=== PATIENT | male | born 1960 | race Caucasian/White ===

== ENCOUNTER → 2018-10-02 09:33 | Outpatient (CLI) | payer OTHER, SELFPAY ==
[2018-10-02 10:40] LABS: Alanine Aminotransferase 39 IU/L (21-72); Albumin 4.5 g/dL (3.5-5.0); Albumin Globulin Ratio 1.6 (1.0-2.8); Alkaline Phosphatase 50 U/L (38-126); Aspartate Aminotransferase 29 IU/L (17-59); BUN Creatinine Ratio 21.1 (6-22); Blood Urea Nitrogen 19 mg/dL (9-20); Calcium 9.5 mg/dL (8.4-10.2); Carbon Dioxide 27 mmol/L (22-32); Chloride 102 mmol/L (98-107); Cholesterol 218 mg/dL (140-199); Estimated Glomerular Filt Rate > 60.0 mL/min (>60); Globulin 2.8 g/dL (1.7-4.1); Glucose 95 mg/dL (80-110); HDL Cholesterol 69 mg/dL (40-60); HEMOLYSIS < 15 (0-50); LDL Cholesterol Calculated 119 mg/dL (<100); Potassium 4.2 mmol/L (3.4-5.1); Sodium 139 mmol/L (137-145); Total Protein 7.3 g/dL (6.3-8.2); Triglycerides 149 mg/dL (35-150)
== END ==
PROVIDERS: PCP Family Medicine; Visit Provider Family Medicine
DX: E66.9 Obesity, unspecified (principal); E78.5 Hyperlipidemia, unspecified; I10 Essential (primary) hypertension
CPT/HCPCS: 36415; 80053; 80061

== ENCOUNTER → 2019-06-26 11:23 | Outpatient (CLI) | payer OTHER, SELFPAY ==
[2019-06-26 12:54] LABS: Hematocrit 47.7 % (41-53); Hemoglobin 16.3 g/dL (13.5-17.5); Mean Corpuscular HGB Conc 34.3 % (30-36); Mean Corpuscular Hemoglobin 31.5 PG (26-34); Mean Corpuscular Volume 91.8 fL (80-100); Platelet Count 206 X10^3/uL (150-400); Red Blood Cell Count 5.19 X10^6/uL (4.5-5.9); Red Cell Distribution Width 12.9 % (11.6-14.8); White Blood Cell Count 5.7 X10^3/uL (4.5-11.0)
[2019-06-26 13:34] LABS: Alanine Aminotransferase 51 IU/L (21-72); Albumin 4.6 g/dL (3.5-5.0); Albumin Globulin Ratio 1.8 (1.0-2.8); Alkaline Phosphatase 57 U/L (38-126); Aspartate Aminotransferase 41 IU/L (17-59); BUN Creatinine Ratio 18.8 (6-22); Bilirubin Total 0.7 mg/dL (0.2-1.3); Blood Urea Nitrogen 15 mg/dL (9-20); Carbon Dioxide 28 mmol/L (22-32); Chloride 101 mmol/L (98-107); Estimated Glomerular Filt Rate > 60.0 mL/min (>60); Globulin 2.6 g/dL (1.7-4.1); Glucose 100 mg/dL (80-110); HEMOLYSIS < 15 (0-50); Potassium 4.8 mmol/L (3.4-5.1); Sodium 140 mmol/L (137-145); Total Protein 7.2 g/dL (6.3-8.2)
[2019-06-26 14:53] LABS: Creatinine Urine Random 67.9 mg/dL
[2019-06-26 15:09] LABS: Microalbumi Creatinin Ratio Ur 8.8 ug/mg CR (<30); Microalbumin Urine Random < 0.6 mg/dL (0-1.6)
== END ==
PROVIDERS: Family Provider Family Medicine; PCP Family Medicine; Visit Provider Nurse Practitioner Family
DX: I10 Essential (primary) hypertension (principal)
CPT/HCPCS: 36415; 80053; 82043; 82570; 85027

== ENCOUNTER → 2020-06-30 10:22 | Outpatient (CLI) | payer OTHER, SELFPAY ==
[2020-06-30 12:01] LABS: Alanine Aminotransferase 41 IU/L (<50); Albumin 4.5 g/dL (3.5-5.0); Albumin Globulin Ratio 1.5 (1.0-2.8); Alkaline Phosphatase 71 U/L (38-126); Aspartate Aminotransferase 32 IU/L (17-59); BUN Creatinine Ratio 12.9 (6-22); Bilirubin Total 0.8 mg/dL (0.2-1.3); Blood Urea Nitrogen 11 mg/dL (9-20); Calcium 9.4 mg/dL (8.4-10.2); Carbon Dioxide 31 mmol/L (22-32); Chloride 102 mmol/L (98-107); Cholesterol 199 mg/dL (140-199); Estimated Glomerular Filt Rate > 60.0 mL/min (>60); Glucose 109 mg/dL (80-110); HDL Cholesterol 59 mg/dL (40-60); HEMOLYSIS < 15 (0-50); LDL Cholesterol Calculated 110 mg/dL (<100); Potassium 4.5 mmol/L (3.4-5.1); Sodium 140 mmol/L (137-145); Total Protein 7.5 g/dL (6.3-8.2); Triglycerides 150 mg/dL (35-150)
== END ==
PROVIDERS: Family Provider Family Medicine; PCP Family Medicine; Referring Provider Family Medicine; Visit Provider Family Medicine
DX: E66.9 Obesity, unspecified (principal); E78.5 Hyperlipidemia, unspecified; I10 Essential (primary) hypertension
CPT/HCPCS: 36415; 80053; 80061

== ENCOUNTER → 2020-12-19 08:50 | Outpatient (CLI) | payer OTHER, SELFPAY ==
[2020-12-19] MEDS: COVID-19 VACC #1, MRNA(MOD) 100 MCG/0.5 ML VIAL IM (09:00)
== END ==
PROVIDERS: Family Provider Family Medicine; PCP Family Medicine; Visit Provider Internal Medicine
DX: Z23 Encounter for immunization (principal)
CPT/HCPCS: 0011A; 91301

== ENCOUNTER → 2021-01-07 11:03 | Outpatient (CLI) | payer OTHER, SELFPAY ==
--- NOTE | 2021-01-07 11:05 | DI.RAD.S_ITS ---
PROCEDURE: XR CERVICAL SPINE 2V OR 3V INDICATIONS: right arm paresthesia TECHNIQUE: Four views of the cervical spine were acquired. COMPARISON: None. FINDINGS: Bones: No acute fractures or dislocations to the C6 level. The lateral masses of C1 appear intact on the odontoid view. No suspicious bony lesions. Degenerative endplate changes are seen at the C4-5 and C5-6 level. There is facet hypertrophy and uncovertebral joint hypertrophy at C3-4 through C6-7. There are no cervical ribs. Soft tissues: No prevertebral soft tissue swelling. IMPRESSION: No acute fracture or subluxation. Moderate multilevel spondylosis. Dictated by: Solomon Galvin M.D. on 01/07/2021 at 17:05 Approved by: Solomon Galvin M.D. on 01/07/2021 at 17:07
--- NOTE | 2021-01-07 11:05 | DI.RAD.S_ITS ---
PROCEDURE: XR SHOULDER RT MIN 2V INDICATIONS: right arm paresthesia TECHNIQUE: 3 views of the shoulder were acquired. COMPARISON: None. FINDINGS: Bones: No fractures or dislocations. No suspicious bony lesions. Visualized ribs appear intact. Soft tissues: No suspicious soft tissue calcifications. IMPRESSION: [id number] osteoarthritis at the right shoulder, no acute trauma found. Dictated by: Edgar Cannon M.D. on 01/07/2021 at 12:41 Approved by: Edgar Cannon M.D. on 01/07/2021 at 12:41
== END ==
PROVIDERS: Family Provider Family Medicine; PCP Family Medicine; Referring Provider Family Medicine; Visit Provider Family Medicine
DX: M25.511 Pain in right shoulder (principal); R20.2 Paresthesia of skin; M19.011 Primary osteoarthritis, right shoulder; M47.812 Spondylosis without myelopathy or radiculopathy, cervical region
CPT/HCPCS: 72040; 73030

== ENCOUNTER → 2021-01-21 07:59 | Outpatient (CLI) | payer OTHER, SELFPAY ==
[2021-01-21] MEDS: COVID-19 VACC #2, MRNA(MOD) 100 MCG/0.5 ML VIAL IM (08:10)
== END ==
PROVIDERS: Family Provider Family Medicine; PCP Family Medicine; Visit Provider Internal Medicine
DX: Z23 Encounter for immunization (principal)
CPT/HCPCS: 0012A; 91301

== ENCOUNTER → 2022-02-25 10:07 | Outpatient (CLI) | payer OTHER, SELFPAY ==
[2022-02-25 11:06] LABS: Add Manual Diff / Slide Review NO; Basophils Absolute Auto 100 /uL (0-100); Basophils Percent Auto 1.4 % (0-2); Eosinophils Absolute Auto 400 /uL (0-450); Eosinophils Percent Auto 6.8 % (2-4); Hematocrit 44.4 % (41-53); Hemoglobin 15.6 g/dL (13.5-17.5); Lymphocytes Absolute Auto 1800 /uL (1100-4500); Lymphocytes Percent Auto 32.4 % (25-40); Mean Corpuscular Hemoglobin 31.5 PG (26-34); Monocytes Absolute Auto 500 /uL (0-900); Neutrophils Absolute Auto 2800 /uL (1500-7000); Neutrophils Percent Auto 50.4 % (50-75); Platelet Count 210 X10^3/uL (150-400); Red Blood Cell Count 4.94 X10^6/uL (4.5-5.9); Red Cell Distribution Width 12.7 % (11.6-14.8); White Blood Cell Count 5.5 X10^3/uL (4.5-11.0)
[2022-02-25 11:22] LABS: Alanine Aminotransferase 41 IU/L (<50); Albumin 4.5 g/dL (3.5-5.0); Albumin Globulin Ratio 1.6 (1.0-2.8); Alkaline Phosphatase 65 U/L (38-126); Aspartate Aminotransferase 40 IU/L (17-59); BUN Creatinine Ratio 22.6 (6-22); Blood Urea Nitrogen 19 mg/dL (9-20); Calcium 9.3 mg/dL (8.4-10.2); Carbon Dioxide 30 mmol/L (22-32); Chloride 100 mmol/L (98-107); Cholesterol 195 mg/dL (140-199); Estimated Glomerular Filt Rate > 60 mL/min (>60); Globulin 2.9 g/dL (1.7-4.1); Glucose 113 mg/dL (80-110); HDL Cholesterol 60 mg/dL (40-60); HEMOLYSIS < 15 (0-50); LDL Cholesterol Calculated 114 mg/dL (<100); Potassium 3.8 mmol/L (3.4-5.1); Sodium 137 mmol/L (137-145); Total Protein 7.4 g/dL (6.3-8.2); Triglycerides 104 mg/dL (35-150)
[2022-02-25 11:51] LABS: Prostate Specific Antigen Scrn 1.27 ng/mL (0.1-4.0)
[2022-02-25 11:53] LABS: TSH w/ Reflex to FT4 1.79 uIU/mL (0.47-4.68)
== END ==
PROVIDERS: Family Provider Family Medicine; PCP Family Medicine; Referring Provider Family Medicine; Visit Provider Family Medicine
DX: E78.5 Hyperlipidemia, unspecified (principal); I10 Essential (primary) hypertension; N52.1 Erectile dysfunction due to diseases classified elsewhere; Z12.5 Encounter for screening for malignant neoplasm of prostate
CPT/HCPCS: 36415; 80053; 80061; 84443; 85025; G0103

== ENCOUNTER → 2022-11-06 08:37 | Outpatient (CLI) | payer OTHER, SELFPAY ==
[2022-11-06 09:31] LABS: Hemoglobin A1C% w Est Avg Glu 5.9 % (4.0-6.0)
[2022-11-06 10:03] LABS: Alanine Aminotransferase 62 IU/L (<50); Albumin 4.3 g/dL (3.5-5.0); Albumin Globulin Ratio 1.6 (1.0-2.8); Alkaline Phosphatase 80 U/L (38-126); Aspartate Aminotransferase 41 IU/L (17-59); BUN Creatinine Ratio 20.3 (6-22); Bilirubin Total 0.8 mg/dL (0.2-1.3); Blood Urea Nitrogen 16 mg/dL (9-20); Calcium 9.3 mg/dL (8.4-10.2); Carbon Dioxide 31 mmol/L (22-32); Chloride 98 mmol/L (98-107); Cholesterol 168 mg/dL (140-199); Estimated Glomerular Filt Rate > 60 mL/min (>60); Globulin 2.7 g/dL (1.7-4.1); Glucose 102 mg/dL (80-110); HDL Cholesterol 57 mg/dL (40-60); HEMOLYSIS < 15 (0-50); LDL Cholesterol Calculated 88 mg/dL (<100); Potassium 3.9 mmol/L (3.4-5.1); Sodium 137 mmol/L (137-145); Triglycerides 114 mg/dL (35-150)
== END ==
PROVIDERS: Family Provider Family Medicine; PCP Family Medicine; Referring Provider Family Medicine; Visit Provider Family Medicine
DX: E78.00 Pure hypercholesterolemia, unspecified (principal); I10 Essential (primary) hypertension; R73.03 Prediabetes
CPT/HCPCS: 36415; 80053; 80061; 83036

== ENCOUNTER → 2022-11-22 07:40 | Outpatient (CLI) | payer OTHER, SELFPAY ==
--- NOTE | 2022-11-22 07:42 | DI.US.S_ITS ---
PROCEDURE: US CAROTID DOPPLER BI INDICATIONS: EVALUATE AND TREAT TECHNIQUE: Color and pulse Doppler interrogation was performed of both carotid systems, with image documentation and velocity measurements. COMPARISON: None. FINDINGS: Stenosis calculations are based on SRU (Society of Radiologists in Ultrasound) criteria. Right side: Brachial blood pressure: 118/66 mm Hg. Common carotid artery peak systolic velocity: 123 cm/sec. Internal carotid artery peak systolic velocity: 90 cm/sec. Internal carotid artery end diastolic velocity: 73 cm/sec. External carotid artery peak systolic velocity: 124 cm/sec. ICA/CCA peak systolic ratio: 0.7 . Guillaume scale imaging description: No plaque Percent internal carotid artery stenosis: No hemodynamically significant stenosis . Vertebral artery: Flow direction is antegrade. Left side: Brachial blood pressure: 132/84 mm Hg. Common carotid artery peak systolic velocity: 87 cm/sec. Internal carotid artery peak systolic velocity: 74 cm/sec. Internal carotid artery end diastolic velocity: 101 cm/sec. External carotid artery peak systolic velocity: 133 cm/sec. ICA/CCA peak systolic ratio: 1.16 . Guillaume scale imaging description: No plaque Percent internal carotid artery stenosis: No hemodynamically significant stenosis . Vertebral artery: Flow direction is antegrade. IMPRESSION: No internal carotid artery plaque or hemodynamically significant stenosis. Dictated by: Reynold Benavidez M.D. on 11/22/2022 at 9:28 Approved by: Reynold Benavidez M.D. on 11/22/2022 at 9:33
== END ==
PROVIDERS: Family Provider Family Medicine; PCP Family Medicine; Referring Provider Family Medicine; Visit Provider Family Medicine
DX: R09.89 Other specified symptoms and signs involving the circulatory and respiratory systems (principal)
CPT/HCPCS: 93880

== ENCOUNTER 2023-01-25 07:09 | Day surgery (SDC) | payer OTHER, SELFPAY ==
[2023-01-25 07:22] VITALS: BP 142/76; PULSE 77; RESP 18; TEMP 36.2; O2SAT 97; BMI 31.8
[2023-01-25] MEDS: LACTATED RINGERS 1,000 ML 200 ML IV (07:35)
--- NOTE | 2023-01-25 08:10 | P.HP_ITS ---
History of Present Illness History of Present Illness Date Patient Seen: 01/25/23 Time Patient Seen: 08:10 Chief complaint: SDC Narrative: The patient presents for colorectal screening. Previously normal colonoscopy 10 years ago. No personal or family history of colon cancer. On further history denies any recent gastrointestinal symptoms. No nausea, vomiting, abdominal pain, loss of appetite, unexplained weight loss, change in bowel habits, or blood per rectum. [facility] Medical History Carotid bruit Chicken pox Erectile disorder due to medical condition in male Hyperlipidemia (09/06/16) Hyperlipidemia Hypertension (09/06/16) Hypertension Obesity (09/06/16) Osteoarthritis Prediabetes Shingles Surgical History No history of previous surgery (09/05/16) Family History Father Age: 92 CVA (cerebral infarction) Congestive heart failure CAD (coronary artery disease) Brother No problems noted. Mother No problems noted. Grandmother No problems noted. Sister No problems noted. Sister No problems noted. Grandfather Heart disease Grandfather No problems noted. Grandmother Blood disorder Social History household members: spouse Smoking Status: Never smoker alcohol intake: current Meds Home Medications and Allergies Home Medications Medication Instructions Recorded Confirmed Type aspirin 81 mg tablet,delayed 81 mg PO QDAY ##0 08/10/17 01/25/23 History release amlodipine 10 mg tablet 10 mg PO DAILY #90 tabs 11/11/22 01/25/23 Rx chlorthalidone 25 mg tablet 25 mg PO DAILY #90 tabs 11/11/22 01/25/23 Rx irbesartan 150 mg tablet See Rx Instructions .Route 11/11/22 01/25/23 Rx .COMPLEX #180 tabs sildenafil (pulm.hypertension) 20 60 mg PO ONCE sexual activity #100 11/11/22 01/25/23 Rx mg tablet tabs simvastatin 40 mg tablet 40 mg PO DAILY #90 tabs 11/11/22 01/25/23 Rx Allergies Allergy/AdvReac Type Severity Reaction Status Date / Time No Known Drug Allergies Allergy Verified 11/11/22 15:35 Exam Vital Signs (past 8 hours): - 01/25/23 07:22 Temperature 97.2 F L Pulse Rate 77 Respiratory Rate 18 Blood Pressure 142/76 H Pulse Oximetry 97 Oxygen Delivery Method Room Air Oxygen Delivery Method Room Air Narrative Exam Narrative: General adult man alert oriented no acute distress Assessment & Plan Assessment & Plan narrative: The patient requires colorectal screening and colonoscopy is recommended. Technical details were discussed. Risks, benefits, alternatives explained. Risks including but not limited to myocardial infarction, aspiration, bleeding, pain, missed lesion, incomplete examination, need for further radiographic studies, colonic perforation, and need for major abdominal surgery were discussed. All questions were answered to their satisfaction, and they are in agreement with this plan.
--- NOTE | 2023-01-25 08:26 | PM.OP.COLON ---
Operative Date/Time/Diagnoses Date of procedure: 01/25/23 Time of procedure: 08:26 Pre-op diagnosis: Colorectal screening Post-op diagnosis: same Procedure & Clinicians Study performed: Colonoscopy-aborted Same procedure as scheduled: Yes Indications: Colorectal screening Surgeon: Harlan Paiz Procedure Notes Procedure in detail: The history and physical was performed/updated and the patient is ASA class is 2. The procedure was discussed in detail with the patient. Potential risks complications including infection, bleeding, missed diagnosis, perforation, need for surgery, and were explained. Their questions were answered and informed consent was obtained. Patient was brought to the procedure room and placed standard monitoring equipment. The patient's vital signs were monitored continuously throughout the entire procedure. Prior to starting time-out was performed. The patient was placed in the left lateral recumbent position. Procedural sedation was administered by anesthesia. Examination began with a thorough inspection of the perianal area there was no evidence of fissures, fistulae, external hemorrhoids or cutaneous malignancy. The colonoscopy scope was then placed into the anal canal and was advanced forward. Within the proximal rectum/sigmoid colon solid non mobile stool was encountered. Despite vigorous irrigation we could not proceed safely. The preparation was inadequate and we will need to be rescheduled with an alternative prep Specimen(s): none sent Impression: Aborted colonoscopy secondary to inadequate prep Post-procedure Plan for aftercare: Contact surgical clinic to reschedule with an alternative prep Disposition: same day surgery
[2023-01-25 08:27] VITALS: BP 112/66; PULSE 63; RESP 14; TEMP 36.2; O2SAT 96
[2023-01-25 08:32] VITALS: BP 112/67; PULSE 63; RESP 14; O2SAT 95
[2023-01-25 08:37] VITALS: BP 119/70; PULSE 64; RESP 17; O2SAT 95
[2023-01-25 08:42] VITALS: BP 134/86; PULSE 66; RESP 15; O2SAT 94
[2023-01-25 08:48] VITALS: BP 135/79; PULSE 61; RESP 16; TEMP 36.3; O2SAT 94
== END 2023-01-25 08:57 | disposition home or self-care (01) ==
PROVIDERS: Family Provider Family Medicine; PCP Family Medicine; Referring Provider Surgery; Visit Provider Surgery
PROC: 0DJD8ZZ Inspection of Lower Intestinal Tract, Via Natural or Artificial Opening Endoscopic (ICD-10-PCS; CPT 45378; principal; 2023-01-25 08:15)
DX: Z12.11 Encounter for screening for malignant neoplasm of colon (principal); Z53.09 Procedure and treatment not carried out because of other contraindication
CPT/HCPCS: 45378; J2250; J3010

== ENCOUNTER 2023-02-22 10:39 | Day surgery (SDC) | payer OTHER, SELFPAY ==
--- NOTE | 2023-02-22 | PATH_ITS ---
[facility] Accession Number: [id number] No. of containers..01 Tissue . 01 Material submitted: . colon - TRANSVERSE POLYP . 01 Diagnosis: Transverse Colon Polyp, Biopsy: Tubular adenoma. MRV 03/01/2023 1426 Local . 01 Electronically signed: . Izabel Manuel MD, Pathologist NPI- [id number] . 01 Gross description: . The specimen is received in formalin labeled with the patient's name, , and transverse polyp and consists of three giraldo soft tissue fragments, ranging from 0.2 to 0.5 cm in greatest dimension. Submitted entirely in cassette A1. ([id number]) /[facility] 02/24/2023 1806 Local . 01 Pathologist provided ICD-10: D12.3 . 01 CPT . 063765 Specimen Comment: A courtesy copy of this report has been sent to [phone] Performed at: 01 [facility] [address] [place] [address] [facility], [place], [place] [id number] MD Jamarcus Ibrahim MD Phone: [phone]
[2023-02-22] MEDS: LACTATED RINGERS 1,000 ML 200 ML IV (10:48)
[2023-02-22 10:58] VITALS: BP 129/69; PULSE 60; RESP 18; TEMP 36.2; O2SAT 98; BMI 32.2
--- NOTE | 2023-02-22 11:37 | P.HP_ITS ---
History of Present Illness History of Present Illness Date Patient Seen: 02/22/23 Time Patient Seen: 11:37 Chief complaint: [facility] Narrative: The patient presents for colorectal screening.? Previously normal colonoscopy 10 years ago.? He had an attempted colonoscopy last month which was aborted due to inadequate prep. [facility] Medical History Carotid bruit Chicken pox Erectile disorder due to medical condition in male Hyperlipidemia (09/06/16) Hyperlipidemia Hypertension (09/06/16) Hypertension Obesity (09/06/16) Osteoarthritis Prediabetes Shingles Surgical History No history of previous surgery (09/05/16) Family History Father Age: 92 CVA (cerebral infarction) Congestive heart failure CAD (coronary artery disease) Brother No problems noted. Mother No problems noted. Grandmother No problems noted. Sister No problems noted. Sister No problems noted. Grandfather Heart disease Grandfather No problems noted. Grandmother Blood disorder Social History household members: spouse Smoking Status: Never smoker alcohol intake: current Meds Home Medications and Allergies Home Medications Medication Instructions Recorded Confirmed Type aspirin 81 mg tablet,delayed 81 mg PO QDAY ##0 08/10/17 02/22/23 History release amlodipine 10 mg tablet 10 mg PO DAILY #90 tabs 11/11/22 02/22/23 Rx chlorthalidone 25 mg tablet 25 mg PO DAILY #90 tabs 11/11/22 02/22/23 Rx irbesartan 150 mg tablet See Rx Instructions .Route 11/11/22 02/22/23 Rx .COMPLEX #180 tabs sildenafil (pulm.hypertension) 20 60 mg PO ONCE sexual activity #100 11/11/22 02/22/23 Rx mg tablet tabs simvastatin 40 mg tablet 40 mg PO DAILY #90 tabs 11/11/22 02/22/23 Rx Allergies Allergy/AdvReac Type Severity Reaction Status Date / Time No Known Drug Allergies Allergy Verified 02/22/23 10:55 Exam Vital Signs (past 8 hours): - 02/22/23 10:58 Temperature 97.1 F L Pulse Rate 60 Respiratory Rate 18 Blood Pressure 129/69 Pulse Oximetry 98 Oxygen Delivery Method Room Air Oxygen Delivery Method Room Air Narrative Exam Narrative: General adult man alert oriented no acute distress Assessment & Plan Assessment & Plan narrative: The patient requires colorectal screening and colonoscopy is recommended. Technical details were discussed. Risks, benefits, alternatives explained. Risks including but not limited to myocardial infarction, aspiration, bleeding, pain, missed lesion, incomplete examination, need for further radiographic studies, colonic perforation, and need for major abdominal surgery were discussed. All questions were answered to their satisfaction, and they are in agreement with this plan.
--- NOTE | 2023-02-22 12:00 | PM.OP.COLON ---
Operative Date/Time/Diagnoses Date of procedure: 02/22/23 Time of procedure: 12:00 Pre-op diagnosis: Colorectal screening Post-op diagnosis: other (Colonic polyps x2) Procedure & Clinicians Study performed: Colonoscopy and polypectomy Same procedure as scheduled: Yes Indications: 62-year-old man here for colorectal screening by colonoscopy. Surgeon: Harlan Paiz Procedure Notes Procedure in detail: The history and physical was performed/updated and the patient is ASA class is 2. The procedure was discussed in detail with the patient. Potential risks complications including infection, bleeding, missed diagnosis, perforation, need for surgery, and were explained. Their questions were answered and informed consent was obtained. Patient was brought to the procedure room and placed standard monitoring equipment. The patient's vital signs were monitored continuously throughout the entire procedure. Prior to starting time-out was performed. The patient was placed in the left lateral recumbent position. Procedural sedation was administered by anesthesia. Examination began with a thorough inspection of the perianal area there was no evidence of fissures, fistulae, external hemorrhoids or cutaneous malignancy. The colonoscopy scope was then placed into the anal canal and was advanced to the cecum, which was identified by the ileocecal valve, the appendiceal orifice and the confluence of the taenia. The scope was then slowly withdrawn examining colon thoroughly in all directions, irrigating it of any residual stool. Sigmoid colon was notable for extensive diverticulosis. Within the transverse colon there was a 3 mm polyp removed with biopsy forceps as well as a flat 5-8 mm polyp which was removed in its entirety with cold snare. The patient tolerated the procedure well. They will be discharged once criteria are met. The prep was of good/excellent quality. The withdrawl time was 8 minutes. Specimen(s): other (Transverse colonic polyps x2) Impression: Colonic polyps Post-procedure Recommendations: High fiber diet Plan for aftercare: Follow-up is dependent on pathology findings Disposition: same day surgery
[2023-02-22 12:02] VITALS: BP 118/67; PULSE 58; RESP 18; TEMP 36.1; O2SAT 95
[2023-02-22 12:07] VITALS: BP 111/68; PULSE 57; RESP 14; O2SAT 96
[2023-02-22 12:13] VITALS: BP 124/74; PULSE 59; RESP 12; O2SAT 96
[2023-02-22 12:17] VITALS: BP 133/73; PULSE 53; RESP 18; O2SAT 99
[2023-02-22 12:33] VITALS: BP 131/81; PULSE 60; RESP 14; TEMP 36.4; O2SAT 100
== END 2023-02-22 12:37 | disposition home or self-care (01) ==
PROVIDERS: Family Provider Family Medicine; PCP Family Medicine; Referring Provider Surgery; Visit Provider Surgery
PROC: 0DJD8ZZ Inspection of Lower Intestinal Tract, Via Natural or Artificial Opening Endoscopic (ICD-10-PCS; CPT 45378; principal; 2023-02-22 11:45)
DX: Z12.11 Encounter for screening for malignant neoplasm of colon (principal); K57.30 Diverticulosis of large intestine without perforation or abscess without bleeding; D12.3 Benign neoplasm of transverse colon
CPT/HCPCS: 45385; 45380; J2704

== ENCOUNTER → 2024-01-26 07:17 | Outpatient (CLI) | payer OTHER, SELFPAY ==
[2024-01-26 08:40] LABS: Hemoglobin A1C% w Est Avg Glu 6.1 % (4.0-6.0)
[2024-01-26 08:43] LABS: Alanine Aminotransferase 35 IU/L (<50); Albumin 4.3 g/dL (3.5-5.0); Albumin Globulin Ratio 1.7 (1.0-2.8); Alkaline Phosphatase 72 U/L (38-126); Aspartate Aminotransferase 32 IU/L (17-59); BUN Creatinine Ratio 26.6 (6-22); Bilirubin Total 0.8 mg/dL (0.2-1.3); Blood Urea Nitrogen 21 mg/dL (9-20); Calcium 9.4 mg/dL (8.4-10.2); Carbon Dioxide 29 mmol/L (22-32); Chloride 106 mmol/L (98-107); Cholesterol 158 mg/dL (140-199); Estimated Glomerular Filt Rate > 60 mL/min (>60); Globulin 2.6 g/dL (1.7-4.1); Glucose 101 mg/dL (80-110); HDL Cholesterol 48 mg/dL (40-60); HEMOLYSIS < 15 (0-50); LDL Cholesterol Calculated 90 mg/dL (<100); Potassium 4.1 mmol/L (3.4-5.1); Sodium 140 mmol/L (137-145); Total Protein 6.9 g/dL (6.3-8.2); Triglycerides 100 mg/dL (35-150)
[2024-01-26 09:13] LABS: Prostate Specific Antigen Scrn 1.43 ng/mL (0.1-4.0)
== END ==
LOC: LAB 07:19
PROVIDERS: Family Provider Family Medicine; PCP Family Medicine; Referring Provider Family Medicine; Visit Provider Family Medicine
DX: Z12.5 Encounter for screening for malignant neoplasm of prostate (principal); R73.03 Prediabetes; E78.00 Pure hypercholesterolemia, unspecified; I10 Essential (primary) hypertension
CPT/HCPCS: 36415; 80053; 80061; 83036; G0103

== ENCOUNTER → 2024-09-06 08:12 | Outpatient (CLI) | payer OTHER, SELFPAY ==
[2024-09-06 09:32] LABS: Hemoglobin A1C% w Est Avg Glu 5.6 % (4.0-6.0)
[2024-09-06 09:54] LABS: Alanine Aminotransferase 44 IU/L (<50); Albumin 4.3 g/dL (3.5-5.0); Albumin Globulin Ratio 1.8 (1.0-2.8); Alkaline Phosphatase 66 U/L (38-126); Aspartate Aminotransferase 40 IU/L (17-59); BUN Creatinine Ratio 21.1 (6-22); Bilirubin Total 0.9 mg/dL (0.2-1.3); Blood Urea Nitrogen 20 mg/dL (9-20); Calcium 9.3 mg/dL (8.4-10.2); Carbon Dioxide 30 mmol/L (22-32); Chloride 100 mmol/L (98-107); Cholesterol 166 mg/dL (140-199); Estimated Glomerular Filt Rate > 60 mL/min (>60); Globulin 2.4 g/dL (1.7-4.1); Glucose 99 mg/dL (80-110); HDL Cholesterol 68 mg/dL (40-60); HEMOLYSIS < 15 (0-50); LDL Cholesterol Calculated 84 mg/dL (<100); Potassium 4.2 mmol/L (3.4-5.1); Sodium 136 mmol/L (137-145); Total Protein 6.7 g/dL (6.3-8.2); Triglycerides 72 mg/dL (35-150)
== END ==
PROVIDERS: Family Provider Family Medicine; PCP Family Medicine; Referring Provider Family Medicine; Visit Provider Family Medicine
DX: R73.03 Prediabetes (principal); E78.5 Hyperlipidemia, unspecified; I10 Essential (primary) hypertension
CPT/HCPCS: 36415; 80053; 80061; 83036

== ENCOUNTER → 2025-08-09 07:33 | Outpatient (CLI) | payer OTHER, SELFPAY ==
[2025-08-09 08:39] LABS: Add Manual Diff / Slide Review NO; Hematocrit 44.7 % (41-53); Hemoglobin 15.6 g/dL (13.5-17.5); Lymphocytes Absolute Auto 1300 /uL (1100-4500); Mean Corpuscular HGB Conc 34.9 % (30-36); Mean Corpuscular Hemoglobin 31.7 PG (26-34); Mean Corpuscular Volume 90.8 fL (80-100); Platelet Count 204 X10^3/uL (150-400)
[2025-08-09 09:01] LABS: Alanine Aminotransferase 32 IU/L (<50); Albumin 4.3 g/dL (3.5-5.0); Albumin Globulin Ratio 1.7 (1.0-2.8); Alkaline Phosphatase 64 U/L (38-126); Blood Urea Nitrogen 17 mg/dL (9-20); Calcium 9.3 mg/dL (8.4-10.2); Carbon Dioxide 28 mmol/L (22-32); Chloride 102 mmol/L (98-107); Cholesterol 163 mg/dL (140-199); Estimated Glomerular Filt Rate > 60 mL/min (>60); Globulin 2.6 g/dL (1.7-4.1); Glucose 97 mg/dL (70-99); HDL Cholesterol 59 mg/dL (40-60); HEMOLYSIS 19 (0-50); Potassium 4.0 mmol/L (3.4-5.1); Sodium 137 mmol/L (137-145); Total Protein 6.9 g/dL (6.3-8.2); Triglycerides 108 mg/dL (35-150)
[2025-08-09 09:29] LABS: TSH w/ Reflex to FT4 2.56 uIU/mL (0.47-4.68)
== END ==
PROVIDERS: Family Provider Family Medicine; PCP Family Medicine; Referring Provider Family Medicine; Visit Provider Family Medicine
DX: Z12.5 Encounter for screening for malignant neoplasm of prostate (principal); E87.5 Hyperkalemia; E78.00 Pure hypercholesterolemia, unspecified; R73.03 Prediabetes; I10 Essential (primary) hypertension
CPT/HCPCS: 36415; 80053; 80061; 84443; 85025; G0103